=== PATIENT | female | born 1990 | race Caucasian/White ===

== ENCOUNTER 2019-10-19 19:39 | Emergency (ER) | payer MEDICAID ==
[~2019-10-19] VITALS: Ht 165.1 cm; Wt 57.6 kg
[2019-10-19 20:04] VITALS: BP 109/62
--- NOTE | 2019-10-19 20:10 | NUR ---
URINE COLLECTED. PATIENT AMB TO LOBBY.
--- NOTE | 2019-10-19 20:39 | NUR ---
PT TO ER BED 10
--- NOTE | 2019-10-19 21:00 | NUR ---
PT BIB WITH REPORTS OF NAUSEA AND VOMITING DURING . STATES SHE IS F[age] WEEKS . PT AAO X4, GCS 15, AMBULATORY WITH STEADY GAIT. RESPIRATIONS EVEN AND UNLABORED, BL LUNG CLERA. SKIN WARM/PINK/DRY, +PMSC. ABDOMEN SOFT, NON DISTENDED, ACTIVE BWOEL SOUND X4. C/O N/V. VS WNL. ED PROVIDER MADE AWARE OF PT STATUS. WILL CONTINUE TO MONITOR
[2019-10-19] MEDS ORDERED: NACL 0.9% 1,000 ML IV SCH (21:17)
[2019-10-19] MEDS ORDERED: diphenhydrAMINE 50 MG/ML VIAL IVP ONE (21:20)
[2019-10-19] MEDS ORDERED: ACETAMINOPHEN 325 MG TAB PO ONE (21:20)
[2019-10-19] MEDS ORDERED: METOCLOPRAMIDE 10 MG/2 ML INJ VIAL IVP ONE (21:20)
[2019-10-19 21:55] LABS: APPEARANCE,URINE SL CLOUDY (CLEAR); BILIRUBIN,URINE NEGATIVE (NEGATIVE); BLOOD, URINE TRACE-I (NEGATIVE); COLOR,URINE YELLOW (YELLOW); LEUKOCYTE ESTERASE ,URINE NEGATIVE (NEGATIVE); NITRITE, URINE NEGATIVE (NEGATIVE); PH,URINE 6.5 (5.0-9.0); UGLUCOSE NEGATIVE (NEGATIVE)
[2019-10-19 22:00] LABS: BASOPHILS # (AUTO) 0.1 K/uL (0.00-0.22); BASOPHILS % (AUTO) 0.6 % (0.0-2.0); EOSINOPHILS # (AUTO) 0.1 K/uL (0-0.4); HEMATOCRIT 38.6 % (36-48); HEMOGLOBIN 12.7 g/dL (12.0-16.0); LYMPHOCYTES # (AUTO) 1.9 K/uL (2.5-16.5); LYMPHOCYTES % (AUTO) 18.7 % (20.5-51.1); MEAN CORPUSCULAR HEMOGLOBIN 29 pg (27-31); MEAN CORPUSCULAR HGB CONC 33 g/dL (33-37); MEAN CORPUSCULAR VOLUME 88.9 fL (80-94); MONOCYTES # (AUTO) 0.7 K/uL (0.8-1.0); MONOCYTES % (AUTO) 7.4 % (1.7-9.3); NEUTROPHILS # (AUTO) 7.2 K/uL (1.8-7.7); NEUTROPHILS % (AUTO) 72.3 % (42.2-75.2); PLATELET COUNT (AUTO) 237 K/uL (140-450); RED BLOOD CELL COUNT(AUTO) 4.34 MIL/uL (4.20-5.40); RED CELL DISTRIBUTION WIDTH 13.9 % (11.6-13.7)
[2019-10-19 22:14] LABS: RBC,URINE 0-5 /HPF (0-5); WBC,URINE NONE SEEN /HPF (0-5)
[2019-10-19 22:15] LABS: URINE AMORPHOUS URATE 2+ /HPF (None Seen)
[2019-10-19 22:30] LABS: ANION GAP 12.8 (8-16); CARBON DIOXIDE 24.8 mmol/L (21-32); CREATININE 0.6 mg/dL (0.6-1.3); POTASSIUM 3.6 mmol/L (3.5-5.1)
[2019-10-19 22:33] LABS: ALBUMIN 3.6 g/dL (3.4-5.0); TOTAL BILIRUBIN 0.4 mg/dL (0.0-1.0)
[2019-10-19 23:15] VITALS: BP 102/59
--- NOTE | 2019-10-19 23:15 | NUR ---
Patient discharged with v/s stable. Written and verbal after care instructions given and explained. Patient alert, oriented and verbalized understanding of instructions. Ambulatory with steady gait. All questions addressed prior to discharge. ID band removed. Patient advised to follow up with PMD. Rx of PYRIDOXINE, PHERNERGAN given. Patient educated on indication of medication including possible reaction and side effects. Opportunity to ask questions provided and answered.
== END 2019-10-19 23:15 | disposition home or self-care (01) ==
LOC: MED 19:39
DX: O21.8 Other vomiting complicating pregnancy (principal); O99.281 Endocrine, nutritional and metabolic diseases complicating pregnancy, first trimester; Z3A.01 Less than 8 weeks gestation of pregnancy; E86.0 Dehydration
CPT/HCPCS: 36415; 80053; 81001; 82150; 83690; 85025; 96361; 96374; 96375; 99283; J1200; J2765; J7030

== ENCOUNTER 2019-11-03 10:44 | Emergency (ER) | payer MEDICAID ==
[~2019-11-03] VITALS: Ht 160 cm; Wt 55.8 kg
[2019-11-03 10:45] VITALS: BP 116/79
--- NOTE | 2019-11-03 10:48 | NUR ---
PT C/O SEVERE NAUSEA AND VOMITING X1 WEEK; SENT BY DR. ORDONEZ; PT DENIES ABD PAIN, DENIES VAGINAL BLEEDING. 7 WEEKS , G-3 P-1 A-1 MISCARRIAGE 9 MONTHS AGO. PATIENT STATES PAIN OF 0/10 AT THIS TIME; VSS; PATIENT POSITIONED FOR COMFORT; HOB ELEVATED; BEDRAILS UP X1; BED DOWN. ER MD MADE AWARE OF PT STATUS.
--- NOTE | 2019-11-03 11:47 | NUR ---
U/S IS AT BEDSIDE.
[2019-11-03 11:54] LABS: BASOPHILS # (AUTO) 0.1 K/uL (0.00-0.22); BASOPHILS % (AUTO) 0.7 % (0.0-2.0); EOSINOPHILS # (AUTO) 0.1 K/uL (0-0.4); EOSINOPHILS % (AUTO) 0.6 % (0.0-4.0); HEMATOCRIT 37.9 % (36-48); HEMOGLOBIN 12.5 g/dL (12.0-16.0); LYMPHOCYTES % (AUTO) 9.7 % (20.5-51.1); MEAN CORPUSCULAR HEMOGLOBIN 29 pg (27-31); MEAN CORPUSCULAR HGB CONC 33 g/dL (33-37); MEAN CORPUSCULAR VOLUME 89.3 fL (80-94); MONOCYTES # (AUTO) 0.6 K/uL (0.8-1.0); NEUTROPHILS # (AUTO) 8.8 K/uL (1.8-7.7); PLATELET COUNT (AUTO) 238 K/uL (140-450); RED BLOOD CELL COUNT(AUTO) 4.24 MIL/uL (4.20-5.40); RED CELL DISTRIBUTION WIDTH 13.8 % (11.6-13.7); WHITE BLOOD COUNT (AUTO) 10.6 K/uL (4.8-10.8)
[2019-11-03] MEDS: NACL 0.9% 1,000 ML IV ONE (11:56)
[2019-11-03 11:58] LABS: APPEARANCE,URINE SL CLOUDY (CLEAR); BILIRUBIN,URINE NEGATIVE (NEGATIVE); BLOOD, URINE 2+ (NEGATIVE); COLOR,URINE YELLOW (YELLOW); LEUKOCYTE ESTERASE ,URINE NEGATIVE (NEGATIVE); NITRITE, URINE NEGATIVE (NEGATIVE); UGLUCOSE NEGATIVE (NEGATIVE)
[2019-11-03] MEDS: ONDANSETRON 4 MG/2 ML VIAL IVP ONE (12:02)
[2019-11-03 12:03] LABS: ANION GAP 9.3 (8-16); CARBON DIOXIDE 28.3 mmol/L (21-32); CREATININE 0.5 mg/dL (0.6-1.3); POTASSIUM 3.6 mmol/L (3.5-5.1)
[2019-11-03 12:08] LABS: ALBUMIN 3.2 g/dL (3.4-5.0); TOTAL BILIRUBIN 0.2 mg/dL (0.0-1.0)
[2019-11-03 12:24] LABS: WBC,URINE 0-5 /HPF (0-5)
[2019-11-03 14:15] VITALS: BP 103/58
== END 2019-11-03 13:53 | disposition home or self-care (01) ==
LOC: MED 10:44
DX: O21.8 Other vomiting complicating pregnancy (principal); Z3A.08 8 weeks gestation of pregnancy
CPT/HCPCS: 36415; 76801; 80053; 81001; 84702; 85025; 86900; 86901; 96361; 96374; 99284; J2405; J7030; Q0092

== ENCOUNTER 2020-03-14 16:29 | Observation (INO) | payer MEDICAID ==
[~2020-03-14] VITALS: Ht 165.1 cm; Wt 66.2 kg
[2020-03-14] MEDS ORDERED: BETAMETH ACET/BETAMETH NA PH 30 MG/5 ML VIAL IM SCH (16:55)
[2020-03-14] MEDS ORDERED: BETAMETH ACET/BETAMETH NA PH 30 MG/5 ML VIAL IM ONE (20:55)
[2020-03-14] MEDS: LACTATED RINGERS 1,000 ML IV SCH (21:25)
[2020-03-14] MEDS ORDERED: MORPHINE SULFATE 4 MG/ML SYR IVP PRN (23:10)
[2020-03-14] MEDS ORDERED: MAG SULF 2000 MG/WATER PREMIX 100 ML IV SCH (23:10)
[2020-03-14] MEDS: PROMETHAZINE 25 MG/ML VIAL IM PRN (23:32)
[2020-03-15] MEDS: MAG SULF 20 GM/H2O PREMIX DRIP 500 ML IV SCH ×3 (00:04→21:06)
[2020-03-15] MEDS ORDERED: MORPHINE SULFATE 10 MG/ML VIAL ONE (08:18)
[2020-03-15 08:31] VITALS: BP 100/64
[2020-03-15] MEDS: PROMETHAZINE 25 MG/ML VIAL IM PRN (08:36)
[2020-03-15 08:37] LABS: ANION GAP 11.2 (8-16); CARBON DIOXIDE 25.7 mmol/L (21-32); CREATININE 0.7 mg/dL (0.6-1.3); POTASSIUM 3.9 mmol/L (3.5-5.1)
[2020-03-15 08:39] LABS: BASOPHILS % (AUTO) 0.2 % (0.0-2.0); HEMATOCRIT 33.4 % (36-48); HEMOGLOBIN 11.3 g/dL (12.0-16.0); LYMPHOCYTES # (AUTO) 0.8 K/uL (2.5-16.5); LYMPHOCYTES % (AUTO) 7.6 % (20.5-51.1); MEAN CORPUSCULAR HEMOGLOBIN 32 pg (27-31); MEAN CORPUSCULAR HGB CONC 34 g/dL (33-37); MEAN CORPUSCULAR VOLUME 93.4 fL (80-94); MONOCYTES # (AUTO) 0.2 K/uL (0.8-1.0); MONOCYTES % (AUTO) 1.8 % (1.7-9.3); NEUTROPHILS # (AUTO) 9.2 K/uL (1.8-7.7); NEUTROPHILS % (AUTO) 90.4 % (42.2-75.2); PLATELET COUNT (AUTO) 182 K/uL (140-450); RED BLOOD CELL COUNT(AUTO) 3.58 MIL/uL (4.20-5.40); RED CELL DISTRIBUTION WIDTH 13.9 % (11.6-13.7); WHITE BLOOD COUNT (AUTO) 10.2 K/uL (4.8-10.8)
--- NOTE | 2020-03-15 08:49 | NUR ---
PATIENT HAS BEEN SCREENED AND CATEGORIZED LOW NUTRITION RISK. PATIENT WILL BE SEEN WITHIN 7 DAYS OF ADMISSION. 03/21/[address]
[2020-03-15] MEDS ORDERED: BETAMETH ACET/BETAMETH NA PH 30 MG/5 ML VIAL IM ONE ×2 (21:28→21:40)
[2020-03-15] MEDS: LACTATED RINGERS 1,000 ML IV SCH (23:39)
[2020-03-16] MEDS: MAG SULF 20 GM/H2O PREMIX DRIP 500 ML IV SCH ×2 (06:32→18:50)
[2020-03-16] MEDS: LACTATED RINGERS 1,000 ML IV SCH (06:33)
[2020-03-16 23:14] LABS: APPEARANCE,URINE CLEAR (CLEAR); BILIRUBIN,URINE NEGATIVE (NEGATIVE); BLOOD, URINE TRACE-I (NEGATIVE); COLOR,URINE YELLOW (YELLOW); LEUKOCYTE ESTERASE ,URINE NEGATIVE (NEGATIVE); NITRITE, URINE NEGATIVE (NEGATIVE); PH,URINE 6.5 (5.0-9.0); UGLUCOSE TRACE (NEGATIVE)
[2020-03-16 23:26] LABS: RBC,URINE 0-5 /HPF (0-5); WBC,URINE 0-5 /HPF (0-5)
[2020-03-16 23:27] LABS: URINE AMORPHOUS URATE 1+ /HPF (None Seen)
[2020-03-17] MEDS ORDERED: NIFEdipine 10 MG CAPLF PO ONE (00:25)
[2020-03-17] MEDS ORDERED: NIFEdipine 10 MG CAPLF PO SCH (06:00)
[2020-03-17] MEDS ORDERED: PRO10 PO (10:14)
--- NOTE | 2020-03-22 09:59 | NUR ---
Late entry after chart review. 48 hour Continuous Magnesium sulfate discontinued on 03/17/20 at 0021.
== END 2020-03-17 11:20 | disposition home or self-care (01) ==
LOC: MLD 16:29
PROVIDERS: ADMIT Obstetrics & Gynecology; ATTEND Obstetrics & Gynecology
DX: O30.043 Twin pregnancy, dichorionic/diamniotic, third trimester (principal); O62.9 Abnormality of forces of labor, unspecified; O34.219 Maternal care for unspecified type scar from previous cesarean delivery; Z3A.28 28 weeks gestation of pregnancy
CPT/HCPCS: 36415; 76817; 80048; 81001; 82731; 83735; 85025; 87086; 96365; 96366; 96372; 96375; C1758; G0378; J0702; J2270; J2550; J3475; J7120; Q0092; 96376

== ENCOUNTER 2020-05-09 11:53 | Outpatient (CLI) | payer MEDICAID ==
[~2020-05-09 11:53] MED LIST: PRO10 PO
== END 2020-05-09 21:22 | disposition home or self-care (01) ==
LOC: MLB 11:53
PROVIDERS: ATTEND Obstetrics & Gynecology
DX: Z01.818 Encounter for other preprocedural examination (principal); Z11.59 Encounter for screening for other viral diseases
CPT/HCPCS: U0003-CS

== ENCOUNTER 2020-05-16 04:35 | Inpatient (IN) | payer MEDICAID ==
[~2020-05-16] VITALS: Ht 160 cm; Wt 68.9 kg
[2020-05-16] MEDS ORDERED: LACTATED RINGERS 1,000 ML IV SCH ×2 (04:53→12:05)
[2020-05-16 06:24] LABS: BASOPHILS # (AUTO) 0.1 K/uL (0.00-0.22); EOSINOPHILS # (AUTO) 0.1 K/uL (0-0.4); MONOCYTES # (AUTO) 0.5 K/uL (0.8-1.0)
[2020-05-16 06:29] LABS: APPEARANCE,URINE HAZY (CLEAR); BILIRUBIN,URINE 1+ (NEGATIVE); BLOOD, URINE 1+ (NEGATIVE); COLOR,URINE YELLOW (YELLOW); LEUKOCYTE ESTERASE ,URINE NEGATIVE (NEGATIVE); NITRITE, URINE NEGATIVE (NEGATIVE); UGLUCOSE NEGATIVE (NEGATIVE)
[2020-05-16 06:30] LABS: BASOPHILS % (AUTO) 0.8 % (0.0-2.0); HEMATOCRIT 40.1 % (36-48); HEMOGLOBIN 13.3 g/dL (12.0-16.0); LYMPHOCYTES # (AUTO) 2.1 K/uL (2.5-16.5); LYMPHOCYTES % (AUTO) 25.9 % (20.5-51.1); MEAN CORPUSCULAR HEMOGLOBIN 31 pg (27-31); MEAN CORPUSCULAR HGB CONC 33 g/dL (33-37); MEAN CORPUSCULAR VOLUME 93.5 fL (80-94); MONOCYTES % (AUTO) 6.1 % (1.7-9.3); NEUTROPHILS # (AUTO) 5.3 K/uL (1.8-7.7); NEUTROPHILS % (AUTO) 66.2 % (42.2-75.2); RED BLOOD CELL COUNT(AUTO) 4.29 MIL/uL (4.20-5.40); WHITE BLOOD COUNT (AUTO) 7.9 K/uL (4.8-10.8)
[2020-05-16 06:35] LABS: ALBUMIN 2.1 g/dL (3.4-5.0); ANION GAP 17.9 (8-16); POTASSIUM 3.9 mmol/L (3.5-5.1); TOTAL BILIRUBIN 0.7 mg/dL (0.0-1.0)
[2020-05-16 06:36] LABS: PLATELET COUNT (AUTO) 104 K/uL (140-450)
[2020-05-16] MEDS ORDERED: ceFAZolin 1,000 MG VIAL ONE (06:45)
[2020-05-16 06:50] LABS: RBC,URINE 0-5 /HPF (0-5); WBC,URINE 0-5 /HPF (0-5)
[2020-05-16] MEDS ORDERED: MORPHINE PRES FREE 10 MG/10 ML AMP IV ONE (07:20)
[2020-05-16] MEDS ORDERED: METOCLOPRAMIDE 10 MG/2 ML INJ VIAL ONE (07:25)
[2020-05-16] MEDS ORDERED: ONDANSETRON 4 MG/2 ML VIAL ONE (07:25)
[2020-05-16] MEDS ORDERED: ePHEDrine 50 MG/ML VIAL ONE (07:25)
--- NOTE | 2020-05-16 07:30 | NUR ---
CALLED TO C SECTION FOR TWINS, BOTH BABIES DRIED, WARMED, STIMULATED, GOOD CRY, MUSCLE TONE, AND RESPIRATORY EFFORT. APGARS 9,9.
--- NOTE | 2020-05-16 07:48 | NUR ---
PATIENT HAS BEEN SCREENED AND CATEGORIZED LOW NUTRITION RISK. PATIENT WILL BE SEEN WITHIN 7 DAYS OF ADMISSION. 05/22/[address]
[2020-05-16] MEDS ORDERED: KETOROLAC 30 MG/ML VIAL IVP PRN ×2 (08:35→22:55)
[2020-05-16] MEDS ORDERED: bisacodyL 5 MG TABEC PO PRN (08:35)
[2020-05-16] MEDS ORDERED: METHYLERGONOVINE 0.2 MG/ML AMP IM PRN (08:35)
[2020-05-16] MEDS ORDERED: SIMETHICONE 80 MG TAB.CHEW PO PRN (08:35)
[2020-05-16] MEDS ORDERED: MEASLES, MUMPS, AND RUBELLA 1 VIAL SQVAC PRN (08:35)
[2020-05-16] MEDS ORDERED: diphenhydrAMINE 50 MG/ML VIAL IVP PRN (12:20)
[2020-05-16] MEDS ORDERED: ONDANSETRON 4 MG/2 ML VIAL IVP PRN (12:20)
[2020-05-16] MEDS ORDERED: KETOROLAC 60 MG/2 ML VIAL IM SCH (12:35)
[2020-05-16] MEDS: OXYTOCIN 20 UNITS in LACTATED RINGERS 1,000 ML IV SCH ×2 (13:05→21:24)
[2020-05-16] MEDS ORDERED: OXYTOCIN 20 UNITS/LR PREMIX 1,000 ML IV ONE (21:14)
[2020-05-17] MEDS ORDERED: OXYTOCIN 20 UNITS/LR PREMIX 1,000 ML IV ONE (05:08)
[2020-05-17] MEDS: OXYTOCIN 20 UNITS in LACTATED RINGERS 1,000 ML IV SCH (05:18)
[2020-05-17 06:17] LABS: BASOPHILS # (AUTO) 0.1 K/uL (0.00-0.22); BASOPHILS % (AUTO) 0.5 % (0.0-2.0); EOSINOPHILS % (AUTO) 0.3 % (0.0-4.0); HEMATOCRIT 37.9 % (36-48); HEMOGLOBIN 12.4 g/dL (12.0-16.0); LYMPHOCYTES # (AUTO) 1.9 K/uL (2.5-16.5); LYMPHOCYTES % (AUTO) 14.6 % (20.5-51.1); MEAN CORPUSCULAR HEMOGLOBIN 31 pg (27-31); MEAN CORPUSCULAR HGB CONC 33 g/dL (33-37); MEAN CORPUSCULAR VOLUME 94.8 fL (80-94); MONOCYTES # (AUTO) 0.6 K/uL (0.8-1.0); MONOCYTES % (AUTO) 4.2 % (1.7-9.3); NEUTROPHILS # (AUTO) 10.7 K/uL (1.8-7.7); NEUTROPHILS % (AUTO) 80.4 % (42.2-75.2); PLATELET COUNT (AUTO) 92 K/uL (140-450); RED CELL DISTRIBUTION WIDTH 14.3 % (11.6-13.7); WHITE BLOOD COUNT (AUTO) 13.3 K/uL (4.8-10.8)
[2020-05-17] MEDS ORDERED: KETOROLAC 30 MG/ML VIAL IVP PRN (07:00)
[2020-05-17] MEDS: oxyCODONE/APAP 5/325 MG 1 TAB TAB PO PRN ×2 (12:12→21:10)
[2020-05-18] MEDS ORDERED: CAMERA MC ONE (02:37)
[2020-05-18] MEDS: oxyCODONE/APAP 5/325 MG 1 TAB TAB PO PRN ×2 (06:05→14:26)
== END 2020-05-18 16:10 | disposition home or self-care (01) | DRG 540 ==
LOC: MLD 04:35 → MFCC 09:40
PROVIDERS: ADMIT Obstetrics & Gynecology; ATTEND Obstetrics & Gynecology
PROC: 10D00Z1 Extraction of Products of Conception, Low, Open Approach (ICD-10-PCS; principal; 2020-05-16 07:30)
PROC: 3E0234Z Introduction of Serum, Toxoid and Vaccine into Muscle, Percutaneous Approach (ICD-10-PCS; 2020-05-18)
DX: O34.211 Maternal care for low transverse scar from previous cesarean delivery (principal); O30.043 Twin pregnancy, dichorionic/diamniotic, third trimester; O26.62 Liver and biliary tract disorders in childbirth; Z37.2 Twins, both liveborn; K83.1 Obstruction of bile duct; Z3A.37 37 weeks gestation of pregnancy; Z23 Encounter for immunization
CPT/HCPCS: 36415; 80053; 81001; 85025; 86592; 86886; 86900; 86901; 87081; 90715; J0690; J1885; J2270; J2405; J2590; J2765; J7120

== ENCOUNTER 2022-01-19 16:17 | Emergency (ER) | payer MEDICAID ==
[~2022-01-19] VITALS: Ht 167.6 cm; Wt 62.1 kg
[2022-01-19 16:22] VITALS: BP 110/75
--- NOTE | 2022-01-19 16:31 | NUR ---
PT AMBULATES TO ER BED 8
--- NOTE | 2022-01-19 16:32 | NUR ---
31 Y/O F BIB SELF C/O HEAVY VAGINAL BLEEDING FOR 2 WEEKS, ALSO C/O H/A 5/10 PAIN AT THIS TIME. 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 LMP BEFORE THIS EVENT WAS 12/01/21. PT STATES SHE HAS A REGULAR PERIOD, NO USE OR ORAL CONTRACEPTIVES, ONLY CONDOM USE. PT DENIES SOB, CP, FEVER, N/V/D. AAOX4, AMBULATES W/O ASSISTANCE. ABLE TO MAKE NEEDS KNOWN. PMH: TWINS 1 YEAR AGO MEDS: NONE DAILY, TYLENOL FOR HEADACHE TODAY. NKA
--- NOTE | 2022-01-19 16:35 | NUR ---
PT SEEN AND EXAMINED BY GABY ARNOLD.
[2022-01-19 17:05] LABS: BASOPHILS % (AUTO) 0.7 % (0.0-2.0); EOSINOPHILS # (AUTO) 0.3 K/uL (0-0.4); EOSINOPHILS % (AUTO) 5.2 % (0.0-4.0); HEMATOCRIT 35.7 % (36-48); LYMPHOCYTES # (AUTO) 1.6 K/uL (2.5-16.5); MEAN CORPUSCULAR HEMOGLOBIN 29 pg (27-31); MEAN CORPUSCULAR HGB CONC 34 g/dL (33-37); MEAN CORPUSCULAR VOLUME 86.3 fL (80-94); MONOCYTES # (AUTO) 0.6 K/uL (0.8-1.0); MONOCYTES % (AUTO) 8.8 % (1.7-9.3); NEUTROPHILS # (AUTO) 3.9 K/uL (1.8-7.7); NEUTROPHILS % (AUTO) 60.3 % (42.2-75.2); PLATELET COUNT (AUTO) 281 K/uL (140-450); RED BLOOD CELL COUNT(AUTO) 4.13 MIL/uL (4.20-5.40); RED CELL DISTRIBUTION WIDTH 13.6 % (11.6-13.7); WHITE BLOOD COUNT (AUTO) 6.5 K/uL (4.8-10.8)
[2022-01-19] MEDS ORDERED: IBUP-2213 PO (17:54)
[2022-01-19 18:16] VITALS: BP 110/75
--- NOTE | 2022-01-19 18:16 | NUR ---
Patient discharged with v/s stable. Written and verbal after care instructions given and explained. Patient alert, oriented and verbalized understanding of instructions. Ambulatory with steady gait. All questions addressed prior to discharge. ID band removed. Patient advised to follow up with PMD. Rx of IBUPROFEN given. Patient educated on indication of medication including possible reaction and side effects. FORM GIVEN EXCUSED FROM WORK THROUGH 01/21/22. Opportunity to ask questions provided and answered.
== END 2022-01-19 18:16 | disposition home or self-care (01) ==
LOC: MED 16:17
DX: N93.8 Other specified abnormal uterine and vaginal bleeding (principal); R42 Dizziness and giddiness; Z79.1 Long term (current) use of non-steroidal anti-inflammatories (NSAID)
CPT/HCPCS: 36415; 81002; 81025; 85025; 99283

== ENCOUNTER 2023-10-09 01:45 | Emergency (ER) | payer MEDICAID ==
[~2023-10-09] VITALS: Ht 248.9 cm; Wt 59.9 kg
[~2023-10-09 01:45] MED LIST changes: +IBUP-2213 PO; -PRO10 PO
[2023-10-09 01:52] VITALS: BP 128/94; PULSE 72; RESP 16; TEMP 98.1; O2SAT 99
[2023-10-09] MEDS: ACETAMIN/CODEINE 120/12MG-5ML 5 ML UDC PO ONE (02:15)
[2023-10-09 02:18] VITALS: BP 112/64; TEMP 98.1
[2023-10-09 02:53] LABS: FLU A ANTIGEN negative (NEGATIVE); FLU B ANTIGEN NEGATIVE (NEGATIVE)
[2023-10-09] MEDS: predniSONE 20 MG TAB PO ONE (03:28)
[2023-10-09] MEDS ORDERED: PRED20TA5 PO (03:29)
[2023-10-09] MEDS ORDERED: ALBU0.0912 IH (03:29)
[2023-10-09] MEDS ORDERED: ROBAC PO (03:29)
[2023-10-09] MEDS ORDERED: AZIT250T4 PO (03:29)
[2023-10-09 03:47] VITALS: PULSE 81; RESP 14; O2SAT 99
== END 2023-10-09 03:47 | disposition home or self-care (01) ==
LOC: MED 01:45
DX: J20.9 Acute bronchitis, unspecified (principal); Z20.822 Contact with and (suspected) exposure to COVID-19; Z79.899 Other long term (current) drug therapy
CPT/HCPCS: 71045; 87426; 87804; 99284; J7512; Q0092